=== PATIENT | female | born 1980 | race African-American/Black ===

== ENCOUNTER 2017-06-30 10:50 | Observation (INO) | payer OTHER ==
[~2017-06-30] VITALS: Ht 167.6 cm; Wt 117.9 kg
[2017-06-30] MEDS ORDERED: PNV1TABL76 PO (11:43)
== END 2017-06-30 13:00 | disposition home or self-care (01) ==
LOC: L&D 10:50
PROVIDERS: ADMIT Obstetrics & Gynecology; ATTEND Obstetrics & Gynecology
DX: O26.893 Other specified pregnancy related conditions, third trimester (principal); R10.2 Pelvic and perineal pain; O60.03 Preterm labor without delivery, third trimester; Z3A.31 31 weeks gestation of pregnancy
CPT/HCPCS: 99281; G0378

== ENCOUNTER 2021-05-15 13:46 | Observation (INO) | payer MEDICAID ==
[~2021-05-15] VITALS: Ht 167.6 cm; Wt 122.5 kg
[~2021-05-15 13:46] MED LIST: PNV1TABL76 PO
[2021-05-15 16:00] LABS: CLARITY URINE CLEAR (CLEAR); COLOR URINE YELLOW (YELLOW); KETONES URINE NEGATIVE (NEGATIVE); LEUKOCYTE ESTERASE URINE TRACE (NEGATIVE); NITRITE URINE NEGATIVE (NEGATIVE); OCCULT BLOOD URINE NEGATIVE (NEGATIVE); PROTEIN URINE 1+ (NEGATIVE); SPECIFIC GRAVITY URINE 1.018 (1.005-1.030)
== END 2021-05-15 16:50 | disposition home or self-care (01) ==
LOC: 8 EST LDRP 13:46
PROVIDERS: ADMIT Obstetrics & Gynecology; ATTEND Obstetrics & Gynecology
DX: O26.853 Spotting complicating pregnancy, third trimester (principal); R10.9 Unspecified abdominal pain; O62.9 Abnormality of forces of labor, unspecified; O99.891 Other specified diseases and conditions complicating pregnancy; M54.9 Dorsalgia, unspecified; O09.523 Supervision of elderly multigravida, third trimester; Z3A.36 36 weeks gestation of pregnancy
CPT/HCPCS: 59025; 76805; 76818; 81003; G0378; 99281

== ENCOUNTER 2021-05-20 03:23 | Observation (INO) | payer MEDICAID ==
[~2021-05-20] VITALS: Ht 167.6 cm; Wt 136.1 kg
== END 2021-05-20 06:40 | disposition home or self-care (01) ==
LOC: 8 EST LDRP 03:23
PROVIDERS: ADMIT Specialist; ATTEND Specialist
DX: O42.913 Preterm premature rupture of membranes, unspecified as to length of time between rupture and onset of labor, third trimester (principal); O26.893 Other specified pregnancy related conditions, third trimester; R10.9 Unspecified abdominal pain; O09.523 Supervision of elderly multigravida, third trimester; Z3A.35 35 weeks gestation of pregnancy
CPT/HCPCS: 59025; G0378; 99281; G0379